=== PATIENT | female | born 1995 | race Caucasian/White ===

== ENCOUNTER 2017-09-08 11:36 | Inpatient (IN) | payer OTHER ==
[~2017-09-08] VITALS: Ht 167.6 cm; Wt 85.7 kg
[2017-09-08] MEDS ORDERED: UNOBMED (12:11)
[2017-09-08 12:37] LABS: APPEARANCE,URINE TURBID; BILIRUBIN, URINE NEGATIVE (NEGATIVE); COLOR,URINE PALE YELLOW; GLUCOSE, URINE (UA) NEGATIVE (NEGATIVE); KETONES,URINE NEGATIVE (NEGATIVE); LEUKOCYTE ESTERASE ,URINE 1+ (NEGATIVE); NITRITE,URINE NEGATIVE (NEGATIVE); PH,URINE 7 (4.5-8.0); PROTEIN,URINE NEGATIVE (NEGATIVE); UROBILINOGEN,URINE NORMAL MG/DL (0.0-1.0)
[2017-09-08 13:02] LABS: BASOPHILS % (AUTO) 0.9 % (0.0-2.0); EOSINOPHILS % (AUTO) 0.9 % (0.0-3.0); HEMATOCRIT 40.2 % (37.0-47.0); HEMOGLOBIN 13.3 G/DL (12.0-16.0); MEAN CORPUSCULAR VOLUME 84 FL (80-99); MONOCYTES % (AUTO) 7.5 % (1.0-10.0); NEUTROPHILS % (AUTO) 61.8 % (45.0-75.0); PLATELET COUNT 213 K/UL (150-450); RED BLOOD COUNT 4.77 M/UL (4.20-5.40); RED CELL DISTRIBUTION WIDTH 13.1 % (11.6-14.8); WHITE BLOOD COUNT 6.8 K/UL (4.8-10.8)
[2017-09-08 13:04] LABS: ANION GAP 8 mmol/L (5-15); BLOOD UREA NITROGEN 7 mg/dL (7-18); CALCIUM 9.3 MG/DL (8.5-10.1); CARBON DIOXIDE 26 MMOL/L (21-32); CHLORIDE 102 MMOL/L (98-107); CREATININE 0.6 MG/DL (0.55-1.30); POTASSIUM 3.7 MMOL/L (3.5-5.1); SODIUM 136 MMOL/L (136-145)
[2017-09-08 13:09] LABS: ALANINE AMINOTRANSFERASE 25 U/L (12-78); ALBUMIN 4.1 G/DL (3.4-5.0); ALKALINE PHOSPHATASE 65 U/L (46-116); ASPARTATE AMINO TRANSFERASE 18 U/L (15-37); BILIRUBIN,TOTAL 0.5 MG/DL (0.2-1.0)
[2017-09-08 13:24] VITALS: BP 120/70
[2017-09-08] MEDS ORDERED: Morphine Sulfate 4mg/ml Inj IVP PRN ×2 (13:30)
[2017-09-08] MEDS ORDERED: Zolpidem 5mg tab ORAL PRN (13:30)
[2017-09-08] MEDS ORDERED: Miralax 17gm pkt ORAL PRN (13:30)
[2017-09-08] MEDS ORDERED: Acetaminophen 650 MG SUPP RECTAL PRN ×2 (13:30)
--- NOTE | 2017-09-08 13:43 | Emergency Room Report ---
History of Present Illness General Chief Complaint: General Complaint Source: Patient Present Illness HPI 22 yo female patient presents to ER for bumps on bilateral buttocks for the past "few years". Patient denies drainage, blood, open wounds at this time. Patient complains of tenderness with siting. Patient reports she was sent to ER for admission to hospital for surgery. Patient states she was sent to ER by Dr. Salomon. Patient states she is having surgery for hidradenitis suppurativa on her buttocks. Patient denies use of pain medications at this time. Patient denies fever, chest pain, SOB. Allergies: Coded Allergies: No Known Allergies (Unverified , 09/08/17) Patient History Past Medical History: see triage record Last Menstrual Period: 08/19/17 Now: No Reviewed Nursing Documentation: PMH: Agreed, PSxH: Agreed Nursing Documentation-PMH Past Medical History: No Stated History Review of Systems All Other Systems: negative except mentioned in HPI Physical Exam Vital Signs Date Time Temp Pulse Resp B/P (MAP) Pulse Ox O2 Delivery O2 Flow Rate FiO2 09/08/17 12:06 97.8 86 19 121/71 96 Room Air 97.9 Sp02 EP Interpretation: reviewed, normal General Appearance: well appearing, no apparent distress, alert, GCS 15, non- toxic Head: normocephalic, atraumatic Eyes: bilateral eye normal inspection, bilateral eye PERRL ENT: hearing grossly normal, normal pharynx, normal voice, uvula midline, moist mucus membranes Respiratory: chest non-tender, lungs clear, normal breath sounds Cardiovascular #1: regular rate, rhythm Gastrointestinal: non tender, soft, no mass, non-distended, no guarding, no rebound Musculoskeletal: back normal, digits/nails normal, gait/station normal, normal range of motion Neurologic: alert, oriented x3, responsive, motor strength/tone normal, normal gait Psychiatric: mood/affect normal Skin: no rash, warm/dry, palpation normal, other - hidradenitis suppurativa on distal medial buttock, bilaterally; TTP, no erythema, no open wound, no drainage Medical Decision Making PA Attestation Dr. Hay is my supervising Physician whom patient management has been discussed with. Diagnostic Impression: Primary Impression: Hidradenitis suppurativa ER Course Patient presents to ER for hidradenitis suppurativa and admission to hospital for surgery. HS, no signs of infection or cellulitis at this time. Ordered labs, EKG, and chest x-ray. Lab results unremarkable. CXR negative for acute process. EKG negative for ST elevations. Patient having surgery with Dr. Salomon. Gave patient report to Dr. Dobbs and informed of admission. Patient will be admitted to Med-Surg to Dr. Dobbs who is covering for Dr. Rizzo. Labs Test 09/08/17 12:15 09/08/17 12:38 Urine Color Pale yellow Urine Appearance Turbid Urine pH 7 (4.5-8.0) Urine Specific [place] 1.010 (1.005-1.035) Urine Protein Negative (NEGATIVE) Urine Glucose (UA) Negative (NEGATIVE) Urine Ketones Negative (NEGATIVE) Urine Occult Blood 2+ (NEGATIVE) Urine Nitrite Negative (NEGATIVE) Urine Bilirubin Negative (NEGATIVE) Urine Urobilinogen Normal MG/DL (0.0-1.0) Urine Leukocyte Esterase 1+ (NEGATIVE) Urine RBC 0-2 /HPF (0 - 2) Urine WBC 0-2 /HPF (0 - 2) Urine Squamous Epithelial Cells Few /LPF (NONE/OCC) Urine Bacteria Few /HPF (NONE) White Blood Count 6.8 K/UL (4.8-10.8) Red Blood Count 4.77 M/UL (4.20-5.40) Hemoglobin 13.3 G/DL (12.0-16.0) Hematocrit 40.2 % (37.0-47.0) Mean Corpuscular Volume 84 FL (80-99) Mean Corpuscular Hemoglobin 27.8 PG (27.0-31.0) Mean Corpuscular Hemoglobin Concent 33.0 G/DL (32.0-36.0) Red Cell Distribution Width 13.1 % (11.6-14.8) Platelet Count 213 K/UL (150-450) Mean Platelet Volume 8.4 FL (6.5-10.1) Neutrophils (%) (Auto) 61.8 % (45.0-75.0) Lymphocytes (%) (Auto) 29.0 % (20.0-45.0) Monocytes (%) (Auto) 7.5 % (1.0-10.0) Eosinophils (%) (Auto) 0.9 % (0.0-3.0) Basophils (%) (Auto) 0.9 % (0.0-2.0) Prothrombin Time 10.6 SEC (9.30-11.50) Prothromb Time International Ratio 1.0 (0.9-1.1) Activated Partial Thromboplast Time 28 SEC (23-33) Sodium Level 136 MMOL/L (136-145) Potassium Level 3.7 MMOL/L (3.5-5.1) Chloride Level 102 MMOL/L (98-107) Carbon Dioxide Level 26 MMOL/L (21-32) Anion Gap 8 mmol/L (5-15) Blood Urea Nitrogen 7 mg/dL (7-18) Creatinine 0.6 MG/DL (0.55-1.30) Estimat Glomerular Filtration Rate > 60 mL/min (>60) Glucose Level 90 MG/DL (74-106) Calcium Level 9.3 MG/DL (8.5-10.1) Total Bilirubin 0.5 MG/DL (0.2-1.0) Aspartate Amino Transf (AST/SGOT) 18 U/L (15-37) Alanine Aminotransferase (ALT/SGPT) 25 U/L (12-78) Alkaline Phosphatase 65 U/L (46-116) Total Protein 8.3 G/DL (6.4-8.2) Albumin 4.1 G/DL (3.4-5.0) Globulin 4.2 g/dL Albumin/Globulin Ratio 1.0 (1.0-2.7) Lipase 101 U/L (73-393) EKG Diagnostic Results Rate: normal Rhythm: NSR ST Segments: other - short PA, rightward axis ASA given to the pt in ED: No PA Scribe Text Suresh Billings PA-C Rhythm Strip Diag. Results EP Interpretation: yes Rate: 69 Rhythm: NSR, no PVC's, no ectopy PA Scribe Text Suresh Billings PA-C Chest X-Ray Diagnostic Results Chest X-Ray Diagnostic Results : Chest X-Ray Ordered: Yes # of Views/Limited/Complete: 1 View Indication: Other EP Interpretation: Yes PA Xray: Interpretation reviewed, by supervising MD, and agrees with findings. Interpretation: no consolidation, no effusion, no pneumothorax Impression: No acute disease PA Scribe Text Suresh Awa PA-C Last Vital Signs Date Time Temp Pulse Resp B/P (MAP) Pulse Ox O2 Delivery O2 Flow Rate FiO2 09/08/17 13:25 97.8 19 121/71 96 Room Air 97.9 09/08/17 13:24 78 Disposition: ADMITTED INPATIENT Referrals: NON PHYSICIAN (PCP) Brody Billings Sep 08, 2017 13:43
--- NOTE | 2017-09-08 13:46 | Diagnostic Imaging Report ---
Indication: Cough Technique: One view of the chest Comparison: none Findings: Lungs and pleural spaces are clear. Heart size is normal Impression: No acute process
[2017-09-08] MEDS: D5 1/2NS 1,000 ML IV SCH (14:47)
[2017-09-08 16:00] VITALS: BP 126/67
--- NOTE | 2017-09-08 16:43 | History and Physical ---
History of Present Illness General Date patient seen: Sep 08, 2017 Time patient seen: 15:20 Reason for Hospitalization: General Complaint Present Illness HPI 22y/o female with pmh of hiradenitis suppurative who presents with increased pain/redness/swelling of b/l buttocks. Pt states she has had symptoms for a while but recently had "flare up". Denies open wounds or drainage. C/o increased pain with sitting. Denies f/c, n/v, d/c, chest pain, SOB. At baseline pt is active, able to walk several blocks and climb several flights of stairs w/ o symptoms. Allergies: Coded Allergies: No Known Allergies (Unverified , 09/08/17) Medication History Miscellaneous Medications Unable to Obtain Medications (Unable To Obtain Meds), (Reported) Patient History History Provided By: Patient, Family Member, Medical Record Healthcare decision maker Resuscitation status Full Code Advanced Directive on File Past Medical/Surgical History Past Medical/Surgical History: (1) Hidradenitis suppurativa Social History Social History: (1) No significant social history Review of Systems Constitutional: Reports: malaise, weakness Eye: Reports: no symptoms ENT: Reports: no symptoms Respiratory: Reports: no symptoms Cardiovascular: Reports: no symptoms Gastrointestinal: Reports: no symptoms Genitourinary: Reports: no symptoms Musculoskeletal: Reports: no symptoms Skin: Reports: lesions Psychiatric: Reports: no symptoms Neurological: Reports: no symptoms Endocrine: Reports: no symptoms Hematologic/Lymphatic: Reports: no symptoms Physical Exam Physical Exam Narrative General: alert, cooperative, no distress, appears stated age Head: normocephalic, without obvious abnormality, atraumatic Eyes: conjunctivae/corneas clear. PERRL, EOM's intact Throat: lips, mucosa, and tongue normal. MMM Neck: supple, symmetrical, trachea midline, and no JVD Lungs: clear to auscultation bilaterally Heart: regular rate and rhythm, S1, S2 normal, no murmur, click, rub or gallop Abdomen: soft, non-tender, non-distended, bowel sounds normal; no masses or organomegaly Extremities: extremities normal, atraumatic, no cyanosis or edema Pulses: 2+ and symmetric Skin: skin color, texture, turgor normal; +HS lesions on distal medial buttock, bilaterally; TTP/erythema/warmth, but no open wound, no drainage Neurologic: grossly normal, no focal deficits Last 24 Hour Vital Signs Date Time Temp Pulse Resp B/P (MAP) Pulse Ox O2 Delivery O2 Flow Rate FiO2 09/08/17 13:25 97.8 19 121/71 96 Room Air 97.9 09/08/17 13:24 98.0 78 16 120/70 98 Room Air 98.0 09/08/17 12:06 97.8 86 19 121/71 96 Room Air 97.9 Laboratory Tests Test 09/08/17 12:15 09/08/17 12:38 Urine Color Pale yellow Urine Appearance Turbid Urine pH 7 (4.5-8.0) Urine Specific [place] 1.010 (1.005-1.035) Urine Protein Negative (NEGATIVE) Urine Glucose (UA) Negative (NEGATIVE) Urine Ketones Negative (NEGATIVE) Urine Occult Blood 2+ (NEGATIVE) H Urine Nitrite Negative (NEGATIVE) Urine Bilirubin Negative (NEGATIVE) Urine Urobilinogen Normal MG/DL (0.0-1.0) Urine Leukocyte Esterase 1+ (NEGATIVE) H Urine RBC 0-2 /HPF (0 - 2) Urine WBC 0-2 /HPF (0 - 2) Urine Squamous Epithelial Cells Few /LPF (NONE/OCC) Urine Bacteria Few /HPF (NONE) White Blood Count 6.8 K/UL (4.8-10.8) Red Blood Count 4.77 M/UL (4.20-5.40) Hemoglobin 13.3 G/DL (12.0-16.0) Hematocrit 40.2 % (37.0-47.0) Mean Corpuscular Volume 84 FL (80-99) Mean Corpuscular Hemoglobin 27.8 PG (27.0-31.0) Mean Corpuscular Hemoglobin Concent 33.0 G/DL (32.0-36.0) Red Cell Distribution Width 13.1 % (11.6-14.8) Platelet Count 213 K/UL (150-450) Mean Platelet Volume 8.4 FL (6.5-10.1) Neutrophils (%) (Auto) 61.8 % (45.0-75.0) Lymphocytes (%) (Auto) 29.0 % (20.0-45.0) Monocytes (%) (Auto) 7.5 % (1.0-10.0) Eosinophils (%) (Auto) 0.9 % (0.0-3.0) Basophils (%) (Auto) 0.9 % (0.0-2.0) Prothrombin Time 10.6 SEC (9.30-11.50) Prothromb Time International Ratio 1.0 (0.9-1.1) Activated Partial Thromboplast Time 28 SEC (23-33) Sodium Level 136 MMOL/L (136-145) Potassium Level 3.7 MMOL/L (3.5-5.1) Chloride Level 102 MMOL/L (98-107) Carbon Dioxide Level 26 MMOL/L (21-32) Anion Gap 8 mmol/L (5-15) Blood Urea Nitrogen 7 mg/dL (7-18) Creatinine 0.6 MG/DL (0.55-1.30) Estimat Glomerular Filtration Rate > 60 mL/min (>60) Glucose Level 90 MG/DL (74-106) Calcium Level 9.3 MG/DL (8.5-10.1) Total Bilirubin 0.5 MG/DL (0.2-1.0) Aspartate Amino Transf (AST/SGOT) 18 U/L (15-37) Alanine Aminotransferase (ALT/SGPT) 25 U/L (12-78) Alkaline Phosphatase 65 U/L (46-116) Total Protein 8.3 G/DL (6.4-8.2) H Albumin 4.1 G/DL (3.4-5.0) Globulin 4.2 g/dL Albumin/Globulin Ratio 1.0 (1.0-2.7) Lipase 101 U/L (73-393) Height (Feet): 5 Height (Inches): 6.00 Weight (Pounds): 189 Medications Current Medications Medications (Trade) Dose Ordered Sig/Hunter Route PRN Reason Start Time Stop Time Status Last Admin Dose Admin Acetaminophen (Tylenol) 650 mg Q4H PRN ORAL Mild Pain/Fever 09/08/17 13:30 10/08/17 13:29 Acetaminophen (Tylenol) 650 mg Q4H PRN RECTAL Mild Pain/Fever 09/08/17 13:30 10/08/17 13:29 Bisacodyl (Dulcolax) 10 mg HSPRN PRN RECTAL Unrelieved Constipation 09/08/17 13:30 10/08/17 13:29 Dextrose (Dextrose 50%) STAT PRN IV Hypoglycemia 09/08/17 13:30 10/08/17 13:29 Dextrose/Sodium Chloride 1,000 ml @ 75 mls/hr [id number] IV 09/08/17 15:00 10/08/17 14:59 09/08/17 14:47 Diphenhydramine HCl (Benadryl) 25 mg Q6H PRN ORAL Itching/Pruritis 09/08/17 13:30 10/08/17 13:29 Docusate Sodium (Colace) 100 mg EVERY 12 HOURS ORAL 09/08/17 21:00 10/08/17 20:59 Morphine Sulfate (Morphine Sulfate) 2 mg Q4H PRN IVP Moderate Pain (Pain Scale 4-6) 09/08/17 13:30 09/15/17 13:29 Morphine Sulfate (Morphine Sulfate) 4 mg Q4H PRN IVP Severe Pain (Pain Scale 7-10) 09/08/17 13:30 09/15/17 13:29 Ondansetron HCl (Zofran) 4 mg Q6H PRN IVP Nausea & Vomiting 09/08/17 13:30 10/08/17 13:29 Polyethylene Glycol (Miralax) 17 gm HSPRN PRN ORAL Constipation 09/08/17 13:30 10/08/17 13:29 Zolpidem Tartrate (Ambien) 5 mg HSPRN PRN ORAL Insomnia 09/08/17 13:30 09/15/17 13:29 Objective Narrative EKG reviewed Assessment/Plan Problem List: (1) Abscess ICD Codes: L02.91 - Cutaneous abscess, unspecified SNOMED: [id number] (2) Hidradenitis suppurativa ICD Codes: L73.2 - Hidradenitis suppurativa SNOMED: [id number] Status: stable Assessment/Plan Admit inpt Surgery consulted Check blood cultures x 2 Empiric IV ancef Pain control, bowel regimen Supportive care DVT ppx w/ SCDs If patient is required to have surgery, based on the patient's medical history, and other available ancillary data, the patient is a LOW risk for an INTERMEDIATE risk procedure. Per the most recent ACC/AHA guidelines, the patient does not need any further cardiopulmonary testing prior to the procedure and there do not appear to be any clear medical contraindications to proceeding with the proposed procedure. FULL CODE D/w pt/family, RN, SW/CM, surgery regarding mgmt and dispo López Carlisle M.D. Sep 08, 2017 16:43
[2017-09-08] MEDS ORDERED: ceFAZolin 1gm/50ml Premix 50 ML IV SCH (17:00)
[2017-09-08] MEDS: ceFAZolin sod 1 GM in NS 55 ML IVPB SCH (17:54)
[2017-09-08] MEDS: Docusate 100mg cap ORAL SCH (20:43)
[2017-09-08 20:55] VITALS: BP 114/67
[2017-09-09] VITALS (14 sets, daily range): BP systolic 95–120; BP diastolic 50–69
[2017-09-09] MEDS: D5 1/2NS 1,000 ML IV SCH ×3 (02:30→17:40)
[2017-09-09] MEDS: ceFAZolin sod 1 GM in NS 55 ML IVPB SCH ×2 (02:30→16:18)
[2017-09-09] MEDS ORDERED: fentaNYL 100 mcg/2 mL IV ONE (07:00)
[2017-09-09] MEDS ORDERED: Sterile Water Irrig 1000ml IRRIG ONE (07:00)
[2017-09-09] MEDS ORDERED: PCA Education Pamphlet MISC ONE (07:00)
[2017-09-09] MEDS ORDERED: Glycopyrrolate 0.2mg/ml 1ml Vial ONE (07:00)
[2017-09-09] MEDS ORDERED: LR 1000ml ONE (07:00)
[2017-09-09] MEDS ORDERED: Morphine Sulfate 10mg/ml Inj ONE (07:00)
[2017-09-09] MEDS ORDERED: NS Irrig 1000ml ONE (07:00)
[2017-09-09] MEDS ORDERED: Sodium Chloride 10ml vial INJ ONE (07:00)
[2017-09-09] MEDS ORDERED: Midazolam 2mg/2ml Inj ONE (07:00)
[2017-09-09] MEDS: PCA shift volume MISC SCH ×2 (07:00→19:12)
[2017-09-09] MEDS ORDERED: Propofol 200mg/20ml IV ONE (07:00)
[2017-09-09] MEDS ORDERED: Zolpidem 5mg tab ORAL PRN (07:00)
[2017-09-09] MEDS ORDERED: Rate Change PCA 1 Each MISC PRN (07:00)
[2017-09-09] MEDS ORDERED: Ketorolac 30mg Inj ONE (07:00)
[2017-09-09] MEDS ORDERED: Neostigmine 1mg/ml 10ml Inj ONE (07:00)
[2017-09-09] MEDS ORDERED: Succinylcholine 20mg/ml 10ml vial ONE (07:00)
--- NOTE | 2017-09-09 07:00 | Pre-Procedure Note/Attestation ---
Pre-Procedure Note/Attestation Complete Prior to Procedure Planned Procedure: bilateral Procedure Narrative: Bilateral buttock debridement and closure Attestation I attest that I discussed the nature of the procedure; its benefits; risks and complications; and alternatives (and the risks and benefits of such alternatives ), prior to the procedure, with the patient (or the patient's legal customer service representative). I attest that, if there was a reasonable possibility of needing a blood transfusion, the patient (or the patient's legal customer service representative) was given the [facility] standardized written summary, pursuant to the [place] Blood Safety Act ([place] Health and Safety Code # 1645, as amended). I attest that I re-evaluated the patient just prior to the surgery and that there has been no change in the patient's H&P, except as documented below: VISHAL GARCIA Sep 09, 2017 07:00
[2017-09-09] MEDS ORDERED: TransDerm Scop 1mg/72HR Patch TDERMAL ONE (07:13)
[2017-09-09] MEDS ORDERED: Lidocaine 1% 10mg/ml/Epi 0.005mg/ml 30ml vial INJ ONE (07:13)
[2017-09-09] MEDS ORDERED: NeoSporin Gu Irrig 1ml Amp IRRIG ONE (07:13)
[2017-09-09] MEDS ORDERED: EPINEPHrine 1mg/1ml Amp ONE (07:13)
[2017-09-09] MEDS ORDERED: Bacitracin 50000 Units Vial ONE (07:13)
[2017-09-09] MEDS ORDERED: LR 1000ml 1,000 ML IVLG SCH (08:35)
--- NOTE | 2017-09-09 08:35 | Anethesia Preoperative Eval ---
Anesthesia Pre-op PMH/ROS General Date of Evaluation: Sep 09, 2017 Time of Evaluation: 07:15 Anesthesiologist: Pamela ASA Score: ASA 2 Mallampati Score Class I : Soft palate, uvula, fauces, pillars visible Class II: Soft palate, uvula, fauces visible Class III: Soft palate, base of uvula visible Class IV: Only hard plate visible Mallampati Classification: Class II Surgeon: Aime Diagnosis: Recurrent HS Surgical Procedure: Excision of bilateral buttock HS Anesthesia History: none Family History: no anesthesia problems Allergies: Coded Allergies: No Known Allergies (Unverified , 09/08/17) Medications: see eMAR Past Medical History Cardiovascular: Denies: HTN, CAD, [place], valve dz, arrhythmia, other Pulmonary: Denies: asthma, COPD, JAMILA, other Gastrointestinal/Genitourinary: Reports: GERD - mild, Denies: CRI, ESRD, other Neurologic/Psychiatric: Denies: dementia, CVA, depression/anxiety, TIA, other Endocrine: Denies: DM, hypothyroidism, steroids, other HEENT: Denies: cataract (L), cataract (R), glaucoma, [place] (L), [place] (R), other Hematology/Immune: Denies: anemia, DVT, bleeding disorder, other Musculoskeletal/Integumentary: Denies: OA, RA, DJD, DDD, edema, other Other: other - overweight PMH Narrative: as above PSxH Narrative: none Anesthesia Pre-op Phys. Exam Physician Exam Last Vital Signs Date Time Temp Pulse Resp B/P (MAP) Pulse Ox O2 Delivery O2 Flow Rate FiO2 09/09/17 04:40 97.7 63 19 95/61 98 97.7 09/08/17 16:00 Room Air Constitutional: NAD Neurologic: CN 2-12 intact Cardiovascular: RRR, no M/R/G Respiratory: CTA Gastrointestinal: S/NT/ND Airway Exam Mallampati Score: Class II MO: full Neck: flexible ROM: full Teeth: intact Dentures: no upper, no lower Anesthesia Pre-op A/P Labs Hematology Test 09/08/17 12:38 White Blood Count 6.8 K/UL (4.8-10.8) Red Blood Count 4.77 M/UL (4.20-5.40) Hemoglobin 13.3 G/DL (12.0-16.0) Hematocrit 40.2 % (37.0-47.0) Mean Corpuscular Volume 84 FL (80-99) Mean Corpuscular Hemoglobin 27.8 PG (27.0-31.0) Mean Corpuscular Hemoglobin Concent 33.0 G/DL (32.0-36.0) Red Cell Distribution Width 13.1 % (11.6-14.8) Platelet Count 213 K/UL (150-450) Mean Platelet Volume 8.4 FL (6.5-10.1) Neutrophils (%) (Auto) 61.8 % (45.0-75.0) Lymphocytes (%) (Auto) 29.0 % (20.0-45.0) Monocytes (%) (Auto) 7.5 % (1.0-10.0) Eosinophils (%) (Auto) 0.9 % (0.0-3.0) Basophils (%) (Auto) 0.9 % (0.0-2.0) Coagulation Test 09/08/17 12:38 Prothrombin Time 10.6 SEC (9.30-11.50) Prothromb Time International Ratio 1.0 (0.9-1.1) Activated Partial Thromboplast Time 28 SEC (23-33) Chemistry Test 09/08/17 12:38 Sodium Level 136 MMOL/L (136-145) Potassium Level 3.7 MMOL/L (3.5-5.1) Chloride Level 102 MMOL/L (98-107) Carbon Dioxide Level 26 MMOL/L (21-32) Anion Gap 8 mmol/L (5-15) Blood Urea Nitrogen 7 mg/dL (7-18) Creatinine 0.6 MG/DL (0.55-1.30) Estimat Glomerular Filtration Rate > 60 mL/min (>60) Glucose Level 90 MG/DL (74-106) Calcium Level 9.3 MG/DL (8.5-10.1) Total Bilirubin 0.5 MG/DL (0.2-1.0) Aspartate Amino Transf (AST/SGOT) 18 U/L (15-37) Alanine Aminotransferase (ALT/SGPT) 25 U/L (12-78) Alkaline Phosphatase 65 U/L (46-116) Total Protein 8.3 G/DL (6.4-8.2) H Albumin 4.1 G/DL (3.4-5.0) Globulin 4.2 g/dL Albumin/Globulin Ratio 1.0 (1.0-2.7) Lipase 101 U/L (73-393) Risk Assessment & Plan Assessment: ASA 2 Plan: GA with ETT prone position PONV prevention, Scopolamine patch order in Status Change Before Surgery: No Pre-Antibiotics Drug: Ancef 1 gr. Given Within 1 Hr of Incision: Yes Time Given: 08:10 ZEKE JONES M.D. Sep 09, 2017 08:35
[2017-09-09] MEDS ORDERED: Midazolam 2mg/2ml Inj IVP PRN (08:45)
[2017-09-09] MEDS ORDERED: Ketorolac 30mg Inj IV PRN (08:45)
[2017-09-09] MEDS ORDERED: DiphenhydrAMINE 50mg/ml Inj IVP PRN (08:45)
[2017-09-09] MEDS ORDERED: Meperidine 50mg/ml Inj(FOR RIGORS ONLY) IV PRN ×2 (08:45)
[2017-09-09] MEDS ORDERED: Hydromorphone 0.5mg/0.5ml inj IVP PRN (08:45)
[2017-09-09] MEDS: Heparin 5000 units/ml inj SUBQ SCH ×2 (09:00→20:29)
[2017-09-09] MEDS: Docusate 100mg cap ORAL SCH ×2 (09:00→20:28)
--- NOTE | 2017-09-09 09:00 | Consultation ---
DATE OF CONSULTATION: 09/09/2017 CONSULTING PHYSICIAN: William Salomon M.D. REASON FOR CONSULTATION: Bilateral buttock and groin abscesses. HISTORY OF PRESET ILLNESS: This is a 22-year-old female admitted through the emergency room for bilateral buttock and groin pain associated with hidradenitis abscesses. She has been having increasing frequency of the pain associated with drainage and tenderness in the area. She presented for pain control and was admitted by the medical team. PAST MEDICAL HISTORY: Significant for hidradenitis suppurativa. PAST SURGICAL HISTORY: Negative. ALLERGIES: None. MEDICATIONS: Include previous use of antibiotics. PHYSICAL EXAMINATION: GENERAL: The patient is alert and oriented. HEART: Regular rate and rhythm. ABDOMEN: Soft, nontender, and nondistended. EXTREMITIES: Examination of the perineum and lower extremities reveals multiple areas of grade 2 hidradenitis abscesses on both inner and outer buttocks with extension into the bilateral groins. She does not have any evidence of disease in the axilla or her breasts. ASSESSMENT AND PLAN: This is a 22-year-old female with advanced hidradenitis grade 2 in her bilateral buttock and groin regions, will require a radical excision of her disease with advanced reconstruction using a skin flap closure. The patient understands the plan and agrees to proceed. William Salomon M.D. DR: ANTONIO JOB#: [id number] CC:
--- NOTE | 2017-09-09 09:26 | Operative Note - PDOC ---
Operative Note Operative Note Pre-op Diagnosis: Bilateral buttock HS Procedure: Debridement of bilateral buttock and groin HS with reconstruction Surgeon: Aime Assistant [employer] Superintendent: Nataliia Anesthesia: general Specimen: yes Complications: none Condition: stable Estimated Blood Loss: minimal Drains: none Implant(s) used?: No VISHAL GARCIA Sep 09, 2017 09:26
[2017-09-09] MEDS: PCA HYDROmorphone 1mg/ml 30 ML IV PRN (10:32)
--- NOTE | 2017-09-09 11:09 | Immediate Post-Op Evaluation ---
Immediate Post-Op Evalulation Immediate Post-Op Evalulation Procedure: Excision of bilateral buttock HS Date of Evaluation: Sep 09, 2017 Time of Evaluation: 09:47 IV Fluids: 1200 Blood Products: none Estimated Blood Loss: 50 Urinary Output: 400 Blood Pressure Systolic: 116 Blood Pressure Diastolic: 63 Pulse Rate: 86 Respiratory Rate: 20 O2 Sat by Pulse Oximetry: 99 Temperature (Fahrenheit): 98.1 Pain Score (1-10): 2 Nausea: No Vomiting: No Complications none Patient Status: reacts, patent, extubated, none Hydration Status: adequate ZEKE JONES M.D. Sep 09, 2017 11:08
--- NOTE | 2017-09-09 15:08 | Cardiology Report ---
APPROVED REPORT EKG Measurement Heart [id number] Sinus rhythm with short LA Rightward axis Borderline ECG
--- NOTE | 2017-09-09 18:45 | Operative Note - Dictated ---
DATE OF OPERATION: 09/09/2017 PREOPERATIVE DIAGNOSIS: Bilateral buttock and groin hidradenitis suppurativa. PREOPERATIVE DIAGNOSIS: Bilateral buttock and groin hidradenitis suppurativa. PROCEDURES: 1. Radical excision of left-sided buttock and groin hidradenitis suppurativa. 2. Radical excision of left-sided inner buttock hidradenitis suppurativa. 3. Radical excision of right groin hidradenitis suppurativa. 4. Elevation of a laterally based gluteal flap for closure of left buttock wound, measuring 15 x 8 cm. 5. Elevation of a medial buttock flap for closure of buttock wound. 6. Elevation of a lateral gluteal flap for closure of right buttock wound, measuring also 15 x 8 cm. 7. Elevation of a medial buttock flap for closure of right buttock wound. 8. Complex closure of right groin wound. SURGEON: William Salomon M.D. LOSS PREVENTION AUDITOR: Patrizia William M.D. ANESTHESIA: General. POSITION: Prone. DRAINS: None. ESTIMATED BLOOD LOSS: Minimal. DISPOSITION: Stable to the recovery room. INDICATIONS FOR SURGERY: This is a 22-year-old female with a longstanding history of hidradenitis suppurativa, who presented to the emergency room with pain in the inner buttock and groin regions with intermittent bouts of drainage and cellulitis. She was admitted, started on IV antibiotics and upon evaluation by me, I felt that she was an appropriate candidate for radical excision and reconstruction of her disease. She understood the risks and benefits of surgery and agreed to proceed. DETAILS OF THE OPERATION: The patient was brought to the operating room and laid in the prone position in the operating table. After induction of anesthesia, the region in the inner buttock were marked out and the lower groin region that was also accessible from the prone position, was also marked out. A total of four distinct areas were marked out. The buttock regions both measured approximately 14 x 5 cm and the groin one measured approximately 5 x 5 cm. A total of 20 mL of lidocaine with epinephrine was injected into all areas. Once 5 minutes elapsed, a #15 blade was then used to first make the left buttock skin incision and excising all the way down the level of the deep subcutaneous tissues. On the left side, we joined the buttock and groin specimens as one specimen to be able to adequately and radically remove the diseased hidradenitis tissue. Once this was done, the defect that resulted was 15 x 8 cm and was clearly not amenable to the primary closure. As such, we first began by elevating a laterally based gluteal flap based off of perforators of the inferior gluteal artery with proximal and distal incisions made to fully mobilize the flap and this was done over the gluteus muscle fascia. In a similar fashion, we had to elevate a medial buttock flap as we were unable to get a complete closure just by elevation of the lateral flaps. This was based off of perforators of the pudendal artery and also branches of the inferior gluteal artery and this was done by proximal distal incisions to fully mobilize the flap. Once these both flaps were fully mobilized, we were able to reapproximate the skin edges without any tension. The flap dimensions on the lateral flap were 15 x 4 cm and the medial one was 15 x 4 cm as well. We then turned our attention to the contralateral right buttock diseased area. A #15 blade was used to incise the skin around the ellipse designed for the excision. Dissection was then carried down all way to the level of the deeper tissues and the specimen was removed on block. Similarly, bilateral flaps had to be elevated to close this 15 x 8 cm wound. A lateral gluteal flap based off of perforators of the inferior gluteal artery was elevated with proximal and distal incisions made to fully mobilize the flap and as was done on the other side, a medial buttock flap also had to be elevated to allow for definitive tension-free closure of the wound. This was based off of perforators of the pudendal artery as well as the inferior gluteal artery. The measurements of the flaps on this side were 15 x 4 cm on the lateral flap and 15 x 4 cm on the medial flap as well. With the buttock wounds addressed, we then turned our attention to the right groin wound, which measured 5 x 5 cm and that was the inferior aspect of the right groin. A #15 blade was used to make the skin incision to incise this and this particular wound did not require flap elevation and was amenable to complex closure. Once all the wounds were copiously irrigated with pulse lavage, the wounds were all then closed using #0 and 2-0 Vicryl sutures for the deep tissues and the dermis and skin nimisha were used to close the skin on both buttock wound as well as the groin wound. The patient tolerated the procedure well and there were no complications. William Salomon M.D. DR: ALEX JOB#: [id number] CC:
[2017-09-09] MEDS ORDERED: Chloraseptic Spray 20mL Bottle ORAL PRN (21:00)
--- NOTE | 2017-09-09 22:34 | General Progress Note ---
Assessment/Plan Problem List: (1) Abscess ICD Codes: L02.91 - Cutaneous abscess, unspecified SNOMED: 532980756 (2) Hidradenitis suppurativa ICD Codes: L73.2 - Hidradenitis suppurativa SNOMED: 54349769 (3) Postoperative nausea ICD Codes: R11.0 - Nausea; Z98.890 - Other specified postprocedural states SNOMED: 64459964 Status: stable Assessment/Plan Appreciate surgery rec's s/p debridement of bilateral buttock and groin HS with reconstruction on 09/09/17 Cont empiric IV ancef F/u cutures Post operative recommendations include: - encourage mobilization/ambulation - encourage incentive spirometry to optimize pulmonary hygiene - DVT/GI prophylaxis as appropriate--SCDs, HSQ - ctm CBC and hemodynamics - ctm electrolytes, adjust/replete prn - pain control, supportive care, bowel regimen FULL CODE A total of 32min of extra time was spent on this encounter in addition to normal encounter time for care/coordination and counseling. D/w pt/family, RN, SW/CM, surgery regarding mgmt and dispo. D/w surgery re postop mgmt Subjective Date patient seen: Sep 09, 2017 Time patient seen: 14:00 Constitutional: Reports: no symptoms Cardiovascular: Reports: no symptoms Respiratory: Reports: no symptoms Gastrointestinal/Abdominal: Reports: nausea Genitourinary: Reports: no symptoms Neurologic/Psychiatric: Reports: no symptoms Endocrine: Reports: no symptoms Hematologic/Lymphatic: Reports: no symptoms Allergies: Coded Allergies: No Known Allergies (Unverified , 09/08/17) All Systems: reviewed and negative except above Subjective No acute o/n events s/p debridement of bilateral buttock and groin HS with reconstruction today POD# 0 Pt c/o nausea postop. No emesis. Pain controlled. Denies f/c, d/c, chest pain, SOB Objective Last 24 Hour Vital Signs Date Time Temp Pulse Resp B/P (MAP) Pulse Ox O2 Delivery O2 Flow Rate FiO2 09/09/17 20:00 18 09/09/17 18:54 98.4 83 20 107/53 100 Room Air 98.4 09/09/17 16:00 20 09/09/17 12:54 20 09/09/17 12:20 20 09/09/17 12:20 98.0 84 20 102/56 99 Nasal Cannula 3.0 98.0 09/09/17 11:50 20 09/09/17 11:24 20 09/09/17 11:20 97.7 73 21 119/57 99 Nasal Cannula 3.0 97.7 09/09/17 11:15 98.0 65 20 106/69 99 Nasal Cannula 3.0 98.0 09/09/17 11:09 20 09/09/17 11:08 208.6 86 20 99 09/09/17 11:02 98.0 09/09/17 11:02 20 09/09/17 11:01 64 20 105/56 99 Nasal Cannula 3.0 09/09/17 10:47 20 09/09/17 10:45 60 20 106/50 99 Nasal Cannula 3.0 09/09/17 10:32 59 20 108/52 99 Nasal Cannula 3.0 09/09/17 10:32 20 09/09/17 10:15 76 20 101/58 99 Nasal Cannula 3.0 09/09/17 09:52 80 20 118/60 99 Simple Mask 8.0 09/09/17 09:47 99 20 119/62 99 Simple Mask 8.0 09/09/17 09:42 99.2 99 20 120/67 99 Simple Mask 8.0 99.2 09/09/17 04:40 97.7 63 19 95/61 98 97.7 09/09/17 00:28 98.5 74 18 118/63 97 98.5 Intake and Output 09/08/17 09/09/17 19:00 07:00 Intake Total 790 ml 750 ml Balance 790 ml 750 ml Intake Oral 420 ml IV Total 370 ml 750 ml # Voids 3 2 Height (Feet): 5 Height (Inches): 6.00 Weight (Pounds): 189 Objective General: alert, cooperative, no distress, appears stated age Head: normocephalic, without obvious abnormality, atraumatic Eyes: conjunctivae/corneas clear. PERRL, EOM's intact Throat: lips, mucosa, and tongue normal. MMM Neck: supple, symmetrical, trachea midline, and no JVD Lungs: clear to auscultation bilaterally Heart: regular rate and rhythm, S1, S2 normal, no murmur, click, rub or gallop Abdomen: soft, non-tender, non-distended, bowel sounds normal; Extremities: extremities normal, atraumatic, no cyanosis or edema Pulses: 2+ and symmetric Skin: skin color, texture, turgor normal; dressings c/d/i Neurologic: grossly normal, no focal deficits López Carlisle M.D. Sep 09, 2017 22:34
[2017-09-10] VITALS: BP 91/46
[2017-09-10] MEDS: ceFAZolin sod 1 GM in NS 55 ML IVPB SCH ×3 (00:02→16:12)
[2017-09-10 04:00] VITALS: BP 99/47
[2017-09-10] MEDS: D5 1/2NS 1,000 ML IV SCH ×3 (06:36→20:49)
[2017-09-10] MEDS: PCA shift volume MISC SCH ×2 (07:00→19:15)
[2017-09-10 08:00] VITALS: BP 101/56
[2017-09-10] MEDS: Docusate 100mg cap ORAL SCH ×2 (08:28→20:49)
--- NOTE | 2017-09-10 08:33 | General Progress Note ---
Progress Note Progress Note Pt seen and examine. POD# 1 and doing well. Dressings CDI Will take down dressings in AM and plan on DC over weekend. Vishal Snow M.D. VISHAL GARCIA Sep 10, 2017 08:33
[2017-09-10] MEDS: Heparin 5000 units/ml inj SUBQ SCH ×2 (08:40→20:53)
[2017-09-10] MEDS: PCA HYDROmorphone 1mg/ml 30 ML IV PRN (11:17)
[2017-09-10 12:00] VITALS: BP 103/54
--- NOTE | 2017-09-10 12:25 | 48 Hour Post Anesthesia Eval ---
Post Anesthesia Evaluation Procedure: Excision of bilateral buttock HS Date of Evaluation: Sep 10, 2017 Time of Evaluation: 12:24 Blood Pressure Systolic: 101 0: 56 Pulse Rate: 77 Respiratory Rate: 19 Temperature (Fahrenheit): 98.3 O2 Sat by Pulse Oximetry: 97 Airway: patent Nausea: No Vomiting: No Pain Intensity: 3 Hydration Status: adequate Cardiopulmonary Status: Stable Mental Status/LOC: patient returned to baseline Follow-up Care/Observations: 0 Post-Anesthesia Complications: 0 Follow-up care needed: N/A Eugene Fletcher MD Sep 10, 2017 12:25
--- NOTE | 2017-09-10 13:33 | General Progress Note ---
Assessment/Plan Problem List: (1) Abscess ICD Codes: L02.91 - Cutaneous abscess, unspecified SNOMED: 261640031 (2) Hidradenitis suppurativa ICD Codes: L73.2 - Hidradenitis suppurativa SNOMED: 39553482 (3) Postoperative nausea ICD Codes: R11.0 - Nausea; Z98.890 - Other specified postprocedural states SNOMED: 89741178 Status: stable Assessment/Plan Appreciate surgery rec's s/p debridement of bilateral buttock and groin HS with reconstruction on 09/09/17 Cont empiric IV ancef F/u cultures Post operative recommendations include: - encourage mobilization/ambulation - encourage incentive spirometry to optimize pulmonary hygiene - DVT/GI prophylaxis as appropriate--SCDs, HSQ - ctm CBC and hemodynamics - ctm electrolytes, adjust/replete prn - pain control, supportive care, bowel regimen FULL CODE A total of 31min of extra time was spent on this encounter in addition to normal encounter time for care/coordination and counseling. D/w pt/family, RN, SW/CM, surgery regarding mgmt and dispo. D/w surgery re postop mgmt Subjective Date patient seen: Sep 10, 2017 Time patient seen: 12:30 ROS Limited/Unobtainable: No Constitutional: Reports: no symptoms HEENT: Reports: no symptoms Cardiovascular: Reports: no symptoms Respiratory: Reports: no symptoms Gastrointestinal/Abdominal: Reports: no symptoms Genitourinary: Reports: no symptoms Neurologic/Psychiatric: Reports: no symptoms Endocrine: Reports: no symptoms Hematologic/Lymphatic: Reports: no symptoms Allergies: Coded Allergies: No Known Allergies (Unverified , 09/08/17) All Systems: reviewed and negative except above Subjective No acute o/n events s/p debridement of bilateral buttock and groin HS with reconstruction today POD# 1 Nausea resolved. Tolerating PO. C/o itching. Pain controlled. Denies f/c, d/c, chest pain, SOB Objective Last 24 Hour Vital Signs Date Time Temp Pulse Resp B/P (MAP) Pulse Ox O2 Delivery O2 Flow Rate FiO2 09/10/17 12:25 208.9 77 19 97 09/10/17 12:00 18 09/10/17 12:00 98.1 72 18 103/54 98 98.1 2/22/18 11:30 18 09/10/17 08:00 98.3 77 19 101/56 97 98.3 09/10/17 08:00 18 09/10/17 04:00 97.7 67 18 99/47 98 Room Air 97.7 09/10/17 04:00 18 09/10/17 00:00 18 09/10/17 00:00 97.8 66 18 91/46 95 Room Air 97.8 09/09/17 20:00 98.2 71 18 102/56 99 Nasal Cannula 2.0 98.2 09/09/17 20:00 18 09/09/17 18:54 98.4 83 20 107/53 100 Room Air 98.4 09/09/17 16:00 20 Intake and Output 09/09/17 09/10/17 19:00 07:00 Intake Total 2042.5 ml 1455 ml Output Total 1600 ml 2100 ml Balance 442.5 ml -645 ml Intake Oral 400 ml IV Total 2042.5 ml 805 ml Other 250 ml Output Urine Total 1550 ml 2100 ml Estimated Blood Loss 50 ml Height (Feet): 5 Height (Inches): 6.00 Weight (Pounds): 189 Objective General: alert, cooperative, no distress, appears stated age Head: normocephalic, without obvious abnormality, atraumatic Eyes: conjunctivae/corneas clear. PERRL, EOM's intact Throat: lips, mucosa, and tongue normal. MMM Neck: supple, symmetrical, trachea midline, and no JVD Lungs: clear to auscultation bilaterally Heart: regular rate and rhythm, S1, S2 normal, no murmur, click, rub or gallop Abdomen: soft, non-tender, non-distended, bowel sounds normal; Extremities: extremities normal, atraumatic, no cyanosis or edema Pulses: 2+ and symmetric Skin: skin color, texture, turgor normal; dressings c/d/i Neurologic: grossly normal, no focal deficits López Carlisle M.D. Sep 10, 2017 13:33
[2017-09-10 16:00] VITALS: BP 101/53
[2017-09-10] MEDS: HydrOXYzine tab 25 MG TAB ORAL PRN (17:19)
[2017-09-10 20:00] VITALS: BP 106/59
[2017-09-11] VITALS (7 sets, daily range): BP systolic 103–118; BP diastolic 48–71
[2017-09-11] MEDS: ceFAZolin sod 1 GM in NS 55 ML IVPB SCH ×4 (00:11→23:28)
[2017-09-11] MEDS ORDERED: Rate Change PCA 1 Each MISC PRN (06:30)
[2017-09-11] MEDS: PCA shift volume MISC SCH ×2 (07:00→19:31)
[2017-09-11] MEDS ORDERED: PCA HYDROmorphone 1mg/ml 30 ML IV PRN (07:00)
[2017-09-11 07:22] LABS: ANION GAP 2 mmol/L (5-15); BASOPHILS % (AUTO) 0.8 % (0.0-2.0); BLOOD UREA NITROGEN 10 mg/dL (7-18); CARBON DIOXIDE 28 MMOL/L (21-32); CHLORIDE 105 MMOL/L (98-107); CREATININE 0.6 MG/DL (0.55-1.30); EOSINOPHILS % (AUTO) 3.5 % (0.0-3.0); HEMATOCRIT 32.9 % (37.0-47.0); HEMOGLOBIN 11.1 G/DL (12.0-16.0); LYMPHOCYTES % (AUTO) 27.1 % (20.0-45.0); MEAN CORPUSCULAR VOLUME 84 FL (80-99); MONOCYTES % (AUTO) 9.2 % (1.0-10.0); NEUTROPHILS % (AUTO) 59.4 % (45.0-75.0); PLATELET COUNT 166 K/UL (150-450); POTASSIUM 3.7 MMOL/L (3.5-5.1); RED CELL DISTRIBUTION WIDTH 13.1 % (11.6-14.8); SODIUM 135 MMOL/L (136-145)
[2017-09-11] MEDS: HydrOXYzine tab 25 MG TAB ORAL PRN (08:51)
[2017-09-11] MEDS: Docusate 100mg cap ORAL SCH ×2 (08:51→21:38)
[2017-09-11] MEDS: Heparin 5000 units/ml inj SUBQ SCH ×2 (08:59→21:44)
--- NOTE | 2017-09-11 15:03 | General Progress Note ---
Assessment/Plan Problem List: (1) Abscess ICD Codes: L02.91 - Cutaneous abscess, unspecified SNOMED: 220342966 (2) Hidradenitis suppurativa ICD Codes: L73.2 - Hidradenitis suppurativa SNOMED: 23980762 (3) Postoperative nausea ICD Codes: R11.0 - Nausea; Z98.890 - Other specified postprocedural states SNOMED: 40037089 (4) Bilateral thigh rash Assessment & Plan: Possibly irritation from friction between thighs rubbing against each other vs fungal rash Status: stable Assessment/Plan Appreciate surgery rec's s/p debridement of bilateral buttock and groin HS with reconstruction on 09/09/17 Cont empiric IV ancef F/u cultures Miconazole ointment to b/l thighs Post operative recommendations include: - encourage mobilization/ambulation - encourage incentive spirometry to optimize pulmonary hygiene - DVT/GI prophylaxis as appropriate--SCDs, HSQ - ctm CBC and hemodynamics - ctm electrolytes, adjust/replete prn - pain control, supportive care, bowel regimen DC planning possibly for Thursday FULL CODE A total of 32min of extra time was spent on this encounter in addition to normal encounter time for care/coordination and counseling. D/w pt/family, RN, SW/CM, surgery regarding mgmt and dispo. D/w surgery re postop mgmt Subjective Date patient seen: Sep 11, 2017 Time patient seen: 15:03 ROS Limited/Unobtainable: No Constitutional: Reports: no symptoms HEENT: Reports: no symptoms Cardiovascular: Reports: no symptoms Respiratory: Reports: no symptoms Gastrointestinal/Abdominal: Reports: no symptoms Genitourinary: Reports: no symptoms Neurologic/Psychiatric: Reports: no symptoms Endocrine: Reports: no symptoms Hematologic/Lymphatic: Reports: no symptoms Allergies: Coded Allergies: No Known Allergies (Unverified , 09/08/17) All Systems: reviewed and negative except above Subjective No acute o/n events s/p debridement of bilateral buttock and groin HS with reconstruction POD#2 Nausea resolved. Tolerating PO. C/o rash between b/l thighs w some discomfort when they touch. Pain controlled. Denies f/c, d/c, chest pain, SOB Objective Last 24 Hour Vital Signs Date Time Temp Pulse Resp B/P (MAP) Pulse Ox O2 Delivery O2 Flow Rate FiO2 09/11/17 14:04 99.6 09/11/17 12:00 20 09/11/17 11:47 98.2 81 20 117/61 100 98.2 09/11/17 11:47 Room Air 09/11/17 08:10 98.1 79 20 113/66 97 98.1 09/11/17 08:10 Room Air 09/11/17 08:00 20 09/11/17 04:00 98.1 81 18 103/48 98 Room Air 98.1 09/11/17 04:00 18 09/11/17 00:00 98.5 79 20 104/49 98 Room Air 98.5 09/11/17 00:00 20 09/10/17 20:00 20 09/10/17 20:00 98.0 77 20 106/59 97 Room Air 98.0 09/10/17 16:00 18 09/10/17 16:00 98.8 83 18 101/53 99 98.8 Intake and Output 09/10/17 09/11/17 19:00 07:00 Intake Total 840 ml 1080 ml Output Total 2100 ml 1850 ml Balance -1260 ml -770 ml Intake Oral 840 ml 200 ml IV Total 880 ml Output Urine Total 2100 ml 1850 ml # Voids 3 Laboratory Tests 09/11/17 06:05: White Blood Count 8.0, Red Blood Count 3.90L, Hemoglobin 11.1L, Hematocrit 32.9L , Mean Corpuscular Volume 84, Mean Corpuscular Hemoglobin 28.4, Mean Corpuscular Hemoglobin Concent 33.7, Red Cell Distribution Width 13.1, Platelet Count 166, Mean Platelet Volume 10.2H, Neutrophils (%) (Auto) 59.4, Lymphocytes (%) (Auto) 27.1, Monocytes (%) (Auto) 9.2, Eosinophils (%) (Auto) 3.5H, Basophils (%) (Auto) 0.8, Sodium Level 135L, Potassium Level 3.7, Chloride Level 105, Carbon Dioxide Level 28, Anion Gap 2L, Blood Urea Nitrogen 10, Creatinine 0.6, Estimat Glomerular Filtration Rate > 60, Glucose Level 95, Calcium Level 8.0L Height (Feet): 5 Height (Inches): 6.00 Weight (Pounds): 189 Objective General: alert, cooperative, no distress, appears stated age Head: normocephalic, without obvious abnormality, atraumatic Eyes: conjunctivae/corneas clear. PERRL, EOM's intact Throat: lips, mucosa, and tongue normal. MMM Neck: supple, symmetrical, trachea midline, and no JVD Lungs: clear to auscultation bilaterally Heart: regular rate and rhythm, S1, S2 normal, no murmur, click, rub or gallop Abdomen: soft, non-tender, non-distended, bowel sounds normal; Extremities: extremities normal, atraumatic, no cyanosis or edema Pulses: 2+ and symmetric Skin: skin color, texture, turgor normal; dressings c/d/i Neurologic: grossly normal, no focal deficits López Carlisle M.D. Sep 11, 2017 15:03
[2017-09-11] MEDS ORDERED: KEFLEX500 MG ORAL (15:06)
[2017-09-11] MEDS: Miconazole 2% Cr 15gm TOPIC SCH ×2 (16:36→17:53)
[2017-09-12 04:00] VITALS: BP 113/63
[2017-09-12] MEDS: PCA shift volume MISC SCH (07:00)
[2017-09-12 08:00] VITALS: BP 106/62
[2017-09-12] MEDS: ceFAZolin sod 1 GM in NS 55 ML IVPB SCH ×3 (08:06→23:45)
[2017-09-12] MEDS: Docusate 100mg cap ORAL SCH ×2 (08:16→20:34)
[2017-09-12] MEDS: Miconazole 2% Cr 15gm TOPIC SCH ×2 (08:16→17:42)
[2017-09-12] MEDS: Heparin 5000 units/ml inj SUBQ SCH ×2 (08:18→20:36)
[2017-09-12 12:00] VITALS: BP 117/69
--- NOTE | 2017-09-12 12:36 | General Progress Note ---
Assessment/Plan Problem List: (1) Abscess ICD Codes: L02.91 - Cutaneous abscess, unspecified SNOMED: 609046341 (2) Hidradenitis suppurativa ICD Codes: L73.2 - Hidradenitis suppurativa SNOMED: 42112472 (3) Postoperative nausea ICD Codes: R11.0 - Nausea; Z98.890 - Other specified postprocedural states SNOMED: 15052751 (4) Bilateral thigh rash Status: stable, progressing Assessment/Plan Appreciate surgery rec's s/p debridement of bilateral buttock and groin HS with reconstruction on 09/09/17 Cont empiric IV ancef F/u cultures Miconazole ointment to b/l thighs Post operative recommendations include: - encourage mobilization/ambulation - encourage incentive spirometry to optimize pulmonary hygiene - DVT/GI prophylaxis as appropriate--SCDs, HSQ - ctm CBC and hemodynamics - ctm electrolytes, adjust/replete prn - pain control, supportive care, bowel regimen DC planning possibly for Thursday FULL CODE A total of 27min of extra time was spent on this encounter in addition to normal encounter time for care/coordination and counseling. D/w pt/family, RN, SW/CM, surgery regarding mgmt and dispo. D/w surgery re postop mgmt Subjective Date patient seen: Sep 12, 2017 Allergies: Coded Allergies: No Known Allergies (Unverified , 09/08/17) Subjective doing well, +flatus, -BM denies cp, sob, n/v, abdominal pain. tolerating PO Objective Last 24 Hour Vital Signs Date Time Temp Pulse Resp B/P (MAP) Pulse Ox O2 Delivery O2 Flow Rate FiO2 09/12/17 12:00 97.7 72 18 117/69 99 Room Air 97.7 09/12/17 10:39 18 09/12/17 08:00 97.3 82 18 106/62 100 Room Air 97.3 09/12/17 08:00 18 09/12/17 04:00 18 09/12/17 04:00 97.8 76 18 113/63 99 Room Air 97.8 09/12/17 01:13 98.3 09/12/17 00:09 18 09/12/17 00:06 100.3 09/11/17 23:32 100.3 83 18 115/70 99 Room Air 100.3 09/11/17 20:30 98.0 80 18 114/60 98 Room Air 98.0 09/11/17 20:00 18 09/11/17 16:00 20 09/11/17 15:59 98.2 100 21 118/71 97 98.2 09/11/17 14:04 99.6 Intake and Output 09/11/17 09/12/17 19:00 07:00 Intake Total 695 ml 1000 ml Output Total 2000 ml 3200 ml Balance -1305 ml -2200 ml Intake Oral 640 ml 1000 ml IV Total 55 ml Output Urine Total 2000 ml 3200 ml # Voids 1 # Bowel Movements 1 Height (Feet): 5 Height (Inches): 6.00 Weight (Pounds): 189 General Appearance: no apparent distress, alert EENT: PERRL/EOMI, normal ENT inspection Neck: non-tender, normal alignment Cardiovascular: normal peripheral pulses, normal rate, regular rhythm Respiratory/Chest: chest wall non-tender, lungs clear, normal breath sounds Abdomen: normal bowel sounds, non tender, soft Neurologic: network applications specialist II-XII grossly normal, no motor/sensory deficits, alert, oriented x 3 Skin: rash - thigh Pratibha Hardin N.P. Sep 12, 2017 12:36
[2017-09-12] MEDS: HYDROcodone/Acetamin 7.5/325 tab ORAL PRN ×2 (13:37→21:40)
[2017-09-12 16:00] VITALS: BP 109/58
[2017-09-12 20:00] VITALS: BP 114/68
[2017-09-13] VITALS: BP 106/61
[2017-09-13 04:00] VITALS: BP 115/74
[2017-09-13 07:25] LABS: BASOPHILS % (AUTO) 0.8 % (0.0-2.0); EOSINOPHILS % (AUTO) 4.8 % (0.0-3.0); HEMATOCRIT 36.4 % (37.0-47.0); HEMOGLOBIN 12.3 G/DL (12.0-16.0); LYMPHOCYTES % (AUTO) 26.2 % (20.0-45.0); MEAN CORPUSCULAR VOLUME 84 FL (80-99); MONOCYTES % (AUTO) 7.8 % (1.0-10.0); NEUTROPHILS % (AUTO) 60.5 % (45.0-75.0); PLATELET COUNT 183 K/UL (150-450); RED BLOOD COUNT 4.34 M/UL (4.20-5.40); WHITE BLOOD COUNT 7.2 K/UL (4.8-10.8)
[2017-09-13 07:40] LABS: ANION GAP 7 mmol/L (5-15); BLOOD UREA NITROGEN 13 mg/dL (7-18); CALCIUM 8.7 MG/DL (8.5-10.1); CARBON DIOXIDE 27 MMOL/L (21-32); CHLORIDE 105 MMOL/L (98-107); CREATININE 0.7 MG/DL (0.55-1.30); POTASSIUM 4.2 MMOL/L (3.5-5.1); SODIUM 139 MMOL/L (136-145)
[2017-09-13] MEDS ORDERED: D5 1/2NS 1000ml IV ONE (08:26)
[2017-09-13] MEDS ORDERED: NS 275ml ONE (08:26)
--- NOTE | 2017-09-15 13:04 | Discharge Summary ---
Discharge Summary Hospital Course Date of Admission Sep 08, 2017 at 12:57 Date of Discharge Sep 13, 2017 at 08:27 Admitting Diagnosis HIDRADENITIS HPI 22y/o female with pmh of hiradenitis suppurative who presents with increased pain/redness/swelling of b/l buttocks. Pt states she has had symptoms for a while but recently had "flare up". Denies open wounds or drainage. C/o increased pain with sitting. Denies f/c, n/v, d/c, chest pain, SOB. At baseline pt is active, able to walk several blocks and climb several flights of stairs w/ o symptoms.v Consultations Plastic surgery Procedures Debridement of bilateral buttock and groin HS with reconstruction on 09/09/17 Hospital Course Pt was admitted and placed on IV antibiotics. She was seen by surgery and underwent debridement of bilateral buttock and groin HS with reconstruction on . Pt required a few days for wound care and pain control. Once cleared by surgery, she was discharged home with oral pain meds and oral antibiotics. Discharge Medications New Medications: Cephalexin* (Keflex*) 500 Mg Capsule 500 MG ORAL Q6H for 7 Days, #28 CAP 0 Refills Continued Medications: Unable to Obtain Medications (Unable To Obtain Meds) 1 Ea Ea Discharge Condition Upon Discharge: stable Discharge Disposition Patient was discharged to Home (01) Discharge Diagnoses: (1) Abscess (2) Postoperative nausea (3) Bilateral thigh rash (4) Hidradenitis suppurativa López Carlisle M.D. Sep 15, 2017 13:04
== END 2017-09-13 08:27 | disposition home or self-care (01) | DRG 571 ==
LOC: EMR 12:53 → 3E 12:57 → EDBEDREQ 13:08
PROC: 0JB90ZZ Excision of Buttock Subcutaneous Tissue and Fascia, Open Approach (ICD-10-PCS; principal; 2017-09-09 07:30)
PROC: 0JX80ZZ Transfer Abdomen Subcutaneous Tissue and Fascia, Open Approach (ICD-10-PCS; principal; 2017-09-09 07:30)
PROC: 0JX90ZZ Transfer Buttock Subcutaneous Tissue and Fascia, Open Approach (ICD-10-PCS; principal; 2017-09-09 07:30)
PROC: 0JB80ZZ Excision of Abdomen Subcutaneous Tissue and Fascia, Open Approach (ICD-10-PCS; principal; 2017-09-09 07:30)
DX: L02.31 Cutaneous abscess of buttock (principal); L02.214 Cutaneous abscess of groin; L73.2 Hidradenitis suppurativa; R11.0 Nausea; R21 Rash and other nonspecific skin eruption
CPT/HCPCS: 36415; 71045; 80048; 80053; 81003; 83690; 85025; 85610; 85730; 87040; 93005; 94003; 94150; 99285; J2250; J2405; J2710